=== PATIENT | male | born 1955 | race Caucasian/White ===

== ENCOUNTER 2017-06-23 09:19 | Emergency (ER) | payer BC ==
[2017-06-23 09:42] VITALS: BP 136/73
--- NOTE | 2017-06-23 10:20 | EDM.PDOC ---
ED HPI GENERAL MEDICAL PROBLEM - General Chief Complaint: Back Pain or Injury Stated Complaint: FELL LAST NIGHT ON STAIRS Time Seen by Provider: 06/23/17 10:13 Source of Information: Reports: Patient, Family History Limitations: Reports: No Limitations - History of Present Illness INITIAL COMMENTS - FREE TEXT/NARRATIVE: pt fell down about 14 [address]ed steps. He is having pain in the left lower lumbar area. Onset: Other ( pt fell last nite. ) Duration: Hour(s): Location: Reports: Back Associated Symptoms: Reports: No Other Symptoms Lower Back Pain Score (Numeric/FACES): 3 Left Hip Pain Score (Numeric/FACES): 3 - Related Data Allergies Allergy/AdvReac Type Severity Reaction Status Date / Time lisinopril Allergy Cough Verified 06/23/17 09:42 Sulfa (Sulfonamide Allergy Rash Verified 06/23/17 09:42 Antibiotics) Home Meds: Home Meds Aspirin 81 mg PO DAILY 06/23/17 [History] Ca Carbonate/Vitamin D3/Vit K [Calcium + D Soft Chewable Tab] 1 tab PO DAILY [History] Cyanocobalamin (Vitamin B-12) [Vitamin B-12] 1,000 mcg PO DAILY 06/23/17 [ History] Indapamide 2.5 mg PO DAILY 06/23/17 [History] Omeprazole Magnesium [Prilosec Otc] 20 mg PO Q48H 06/23/17 [History] Ubidecarenone [Co Q-10] 10 mg PO DAILY 06/23/17 [History] Valsartan 40 mg PO DAILY 06/23/17 [History] atorvaSTATin [Lipitor] 20 mg PO ONETIME 06/23/17 [History] metFORMIN [Glucophage] 1,000 mg PO BIDMEALS 06/23/17 [History] Past Medical History HEENT History: Reports: Impaired Vision Cardiovascular History: Reports: High Cholesterol, Hypertension Genitourinary History: Reports: Prostate Disorder Musculoskeletal History: Reports: Fracture Neurological History: Reports: Neuropathy, Diabetic, Neuropathy, Peripheral Endocrine/Metabolic History: Reports: Diabetes, Type II - Past Surgical History GI Surgical History: Reports: Colonoscopy, EGD, Esophageal Dilatation Male Surgical History: Reports: Other (See Below) Other Male Surgeries/Procedures: urinary tract dilatation Musculoskeletal Surgical History: Reports: ORIF, Other (See Below) Other Musculoskeletal Surgeries/Procedures:: right thumb tendon repair Social & Family History - Tobacco Use Smoking Status *Q: Never Smoker - Caffeine Use Caffeine Use: Reports: Coffee, Tea - Alcohol Use Days Per Week of Alcohol Use: 2 Number of Drinks Per Day: 1 Total Drinks Per Week: 2 - Recreational Drug Use Recreational Drug Use: No ED ROS GENERAL - Review of Systems Review Of Systems: See Below Constitutional: Reports: No Symptoms HEENT: Reports: No Symptoms Respiratory: Reports: No Symptoms Cardiovascular: Reports: No Symptoms Endocrine: Reports: No Symptoms GI/Abdominal: Reports: No Symptoms : Reports: No Symptoms Skin: Reports: Other (pt fell and he has left lower back pain. ) Neurological: Reports: No Symptoms Psychiatric: Reports: No Symptoms ED EXAM,LOWER BACK PAIN/INJURY - Physical Exam Exam: See Below Text/Narrative:: pt fell down 14 [address] steps. He has some discomfort particularly when he is movining in the left lower back area. Exam Limited By: No Limitations General Appearance: Alert, Mild Distress Ears: Normal TMs Nose: Normal Inspection Throat/Mouth: Normal Inspection Head: Atraumatic Neck: Normal Inspection Respiratory/Chest: No Respiratory Distress Cardiovascular: Regular Rate, Rhythm GI/Abdominal: Soft, Non-Tender (Male) Exam: Deferred Rectal (Males) Exam: Deferred Course - Vital Signs Last Recorded V/S: Last Vital Signs Temp 35.7 C 06/23/17 09:39 Pulse 66 06/23/17 09:39 Resp 16 06/23/17 09:39 BP 136/73 06/23/17 09:39 Pulse Ox 96 06/23/17 09:39 - Re-Assessments/Exams Free Text/Narrative Re-Assessment/Exam: 06/23/17 11:05 xrays were obtained of the lumbar spine. He was found to have a mild compression change of t 12, l1 and l2. He is not tender over that area so I would suspect that that change is old In the lower lumbar on the left where he is tender he has no acute fractures. He has some degenerative disc disease. It would appear that there is no acute injury. Departure - Departure Time of Disposition: 11:08 Disposition: Home, Self-Care 01 Condition: Fair Clinical Impression: Lumbar back sprain - Discharge Information Referrals: PCP,None [Primary Care Provider] - Forms: ED Department Discharge Care Plan Goals: ice to the left lumbar area, motrin 600mg tid for discomfort as needed. for no more than 5 days.
--- NOTE | 2017-06-23 10:47 | CR ---
Lumbar Spine Min 4V INDICATION: fell last nite. FINDINGS: No comparison studies. 5 lumbar type vertebral bodies. Slight compression of the superior e ndplates of L2, L1, and T12 could be acute or chronic. Mild degenerative disc space narrowing at L5-S 1 with endplate hypertrophic changes. 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
== END 2017-06-23 11:19 | disposition home or self-care (01) ==
LOC: JP.ED 09:19
DX: S33.5XXA Sprain of ligaments of lumbar spine, initial encounter (principal); I10 Essential (primary) hypertension; E11.40 Type 2 diabetes mellitus with diabetic neuropathy, unspecified; Z88.2 Allergy status to sulfonamides; Z88.8 Allergy status to other drugs, medicaments and biological substances; Z79.899 Other long term (current) drug therapy; W10.9XXA Fall (on) (from) unspecified stairs and steps, initial encounter
CPT/HCPCS: 72110; 72110-26; 99284